=== PATIENT | female | born 1935 | race Caucasian/White ===

== ENCOUNTER 2016-06-10 09:08 | Inpatient (IN) | payer MEDICARE ==
[~2016-06-10 09:08] MED LIST: AMLODIPINE-BEN1 EAC7 PO; ARICEPT10 M2 PO; ARTHRITIS PAIN650 M6 PO; BISAC-EVAC10 MG PR; BISCOLAX10 MG PR; COLACE100 M1 PO; DOCUSATE SODIU100 M3 PO; GABAPENTIN300 M1 PO; HYDROCODON-ACE1 EA16 PO; KEFLEX500 M4 PO; LASIX40 M1 PO; LOPERAMIDE2 M2 PO; LOTREL 5-10 MG1 EACH PO; MAPAP ARTHRITI650 M1 PO; MILK OF MAGNESIA PO; MULTIVITAMINS1 EAC6 PO; NAMENDA5 M1 PO; NEURONTIN300 M1 PO; NORCO 5-325 TA1 EACH PO; NUEDEXTA 20-101 EAC1 PO; ONCE DAILY1 EACH PO; POTASSIUM CHLO20 ME3 PO; QUETIAPINE FUMA25 M1 PO; RISPERIDONE0.5 M1 PO; SERTRALINE HCL50 M4 PO; VANCOMYCIN125 MG/2.1 PO; ZOLOFT50 M1 PO
[2016-06-10] MEDS ORDERED: AMLODIPINE-BEN1 EAC7 PO (09:18)
[2016-06-10] MEDS ORDERED: MAPAP ARTHRITI650 M1 PO ×2 (09:19→09:23)
[2016-06-10] MEDS ORDERED: NUEDEXTA 20-101 EAC1 PO (09:19)
[2016-06-10] MEDS ORDERED: NEURONTIN300 M1 PO (09:19)
[2016-06-10] MEDS ORDERED: ZOLOFT50 M1 PO (09:20)
[2016-06-10] MEDS ORDERED: ONCE DAILY1 EACH PO (09:20)
[2016-06-10] MEDS ORDERED: RISPERDAL0.5 M2 PO (09:20)
[2016-06-10] MEDS ORDERED: BISCOLAX10 MG PR (09:21)
[2016-06-10] MEDS ORDERED: COLACE100 M1 PO (09:21)
[2016-06-10] MEDS ORDERED: TRIMETHOPRIM100 M1 PO (09:21)
[2016-06-10] MEDS ORDERED: HYDROCODON-ACE1 EA16 PO (09:22)
[2016-06-10] MEDS ORDERED: LOPERAMIDE2 M2 PO (09:22)
[2016-06-10] MEDS ORDERED: MILK OF MAGNESIA PO (09:23)
[2016-06-10 09:56] LABS: URINE BILIRUBIN NEGATIVE (NEG); URINE BLOOD MODERATE (NEG); URINE GLUCOSE (UA) NEGATIVE (NEG); URINE KETONE NEGATIVE (NEG); URINE LEUKOCYTE ESTERASE POSITIVE (NEG); URINE NITRITE NEGATIVE (NEG); URINE PROTEIN SMALL (NEG); URINE SPECIFIC GRAVITY 1.015 (1.003-1.030)
[2016-06-10 09:57] LABS: URINE APPEARANCE HAZY; URINE COLOR YELLOW
[2016-06-10 10:05] LABS: BASO % 0.4 % (0-2); EOS % 1.7 % (0-7); EOSINOPHIL ABSOLUTE COUNT 0.1 tho/cmm (0.0-0.7); HCT-HEMATOCRIT 36.3 % (34.0-49.0); HGB-HEMOGLOBIN 11.4 gm/dl (12.0-15.5); IMMATURE GRANULOCYTES ABSOLUTE 0.01 tho/cmm (0-0.03); IMMATURE GRANULOCYTES PERCENT 0.2 % (0-0.3); LYMPH % 30.8 % (20-45); LYMPH ABSOLUTE COUNT 1.6 tho/cmm (0.8-4.5); MCH (MEAN CORPUSCULAR HGB) 27.1 pg (28.0-32.0); MCHC MEAN CORPUSCULAR HGB CONC 31.4 % (32.0-36.0); MCV (MEAN CELL VOLUME) 86.2 fl (82.0-96.0); MEAN PLATELET VOLUME 10.1 cmc (9.4-12.4); MONO % 5.6 % (0-12); MONOCYTE ABSOLUTE COUNT 0.3 tho/cmm (0.0-1.2); NEUTROPHIL ABSOLUTE COUNT 3.3 tho/cmm (1.6-8.0); NEUTROPHIL-AUTOMATED 3.3 tho/cmm (1.6-8.0); NEUTROPHILS % 61.3 % (40-80); PLATELET COUNT 169 tho/cmm (150-450); RED BLOOD COUNT 4.21 mil/cmm (4.00-5.20); RED CELL DISTRIBUTION WIDTH 15.6 % (12.4-16.4); WHITE BLOOD COUNT 5.3 tho/cmm (4.0-10.0)
[2016-06-10 10:13] LABS: URINE BACTERIA 4+
[2016-06-10 10:35] LABS: ALB/GLOB RATIO 0.9 (0.8-2.0); ALBUMIN 3.1 g/dl (3.5-5.0); ALKALINE PHOSPHATASE 58 U/L (33-138); ALT/SGPT 17 U/L (12-78); ANION GAP 13 mmol/L (0-20); AST/SGOT 16 U/L (10-40); BILIRUBIN,TOTAL 0.2 mg/dl (0-1.5); BLOOD UREA NITROGEN 23 mg/dl (6-24); CALCIUM 8.6 mg/dl (8.5-10.5); CARBON DIOXIDE-VENOUS 23 mmol/L (22-32); CHLORIDE 111 mmol/l (96-110); CREATININE 1.16 mg/dl (0.50-1.10); GLUCOSE 111 mg/dL (70-110); LIPASE 93 U/L (73-393); POTASSIUM 4.3 mmol/L (3.7-5.1); SODIUM 143 mmol/L (135-145); eGFR VALUE FOR BLACK 51 mL/Min
[2016-06-10 10:43] LABS: PROCALCITONIN <0.05 ng/ml (0.05-0.09)
[2016-06-11 06:29] LABS: BASO % 0.3 % (0-2); EOSINOPHIL ABSOLUTE COUNT 0.1 tho/cmm (0.0-0.7); HCT-HEMATOCRIT 36.4 % (34.0-49.0); HGB-HEMOGLOBIN 11.4 gm/dl (12.0-15.5); IMMATURE GRANULOCYTES ABSOLUTE 0.01 tho/cmm (0-0.03); IMMATURE GRANULOCYTES PERCENT 0.1 % (0-0.3); LYMPH % 18.8 % (20-45); LYMPH ABSOLUTE COUNT 1.4 tho/cmm (0.8-4.5); MCH (MEAN CORPUSCULAR HGB) 27.1 pg (28.0-32.0); MCHC MEAN CORPUSCULAR HGB CONC 31.3 % (32.0-36.0); MCV (MEAN CELL VOLUME) 86.7 fl (82.0-96.0); MEAN PLATELET VOLUME 9.7 cmc (9.4-12.4); MONO % 7.6 % (0-12); MONOCYTE ABSOLUTE COUNT 0.6 tho/cmm (0.0-1.2); NEUTROPHIL ABSOLUTE COUNT 5.2 tho/cmm (1.6-8.0); NEUTROPHIL-AUTOMATED 5.2 tho/cmm (1.6-8.0); NEUTROPHILS % 72.2 % (40-80); PLATELET COUNT 202 tho/cmm (150-450); RED CELL DISTRIBUTION WIDTH 15.7 % (12.4-16.4); WHITE BLOOD COUNT 7.2 tho/cmm (4.0-10.0)
[2016-06-11 06:48] LABS: ANION GAP 12 mmol/L (0-20); BLOOD UREA NITROGEN 18 mg/dl (6-24); CALCIUM 8.6 mg/dl (8.5-10.5); CARBON DIOXIDE-VENOUS 24 mmol/L (22-32); CHLORIDE 111 mmol/l (96-110); CREATININE 1.11 mg/dl (0.50-1.10); GLUCOSE 91 mg/dL (70-110); SODIUM 143 mmol/L (135-145); eGFR VALUE FOR BLACK 54 mL/Min
[2016-06-12 06:12] LABS: ANION GAP 11 mmol/L (0-20); BLOOD UREA NITROGEN 17 mg/dl (6-24); CALCIUM 8.6 mg/dl (8.5-10.5); CARBON DIOXIDE-VENOUS 26 mmol/L (22-32); CHLORIDE 111 mmol/l (96-110); GLUCOSE 89 mg/dL (70-110); POTASSIUM 3.8 mmol/L (3.7-5.1); SODIUM 144 mmol/L (135-145); eGFR VALUE FOR BLACK 54 mL/Min
[2016-06-13] MEDS ORDERED: STOP TAKING (13:17)
[2016-06-13] MEDS ORDERED: KEFLEX500 M4 PO (13:17)
[2016-06-13] MEDS ORDERED: SEROQUEL25 M2 PO ×2 (13:23)
[2016-06-13] MEDS ORDERED: CULTURELLE1 EAC1 PO (13:27)
== END 2016-06-13 15:00 | DRG 682 ==
LOC: EDMED 09:08 → EMR2 12:51 → PCUB 15:38 → 5WE 06-12 16:31
PROVIDERS: Emergency Medicine; Internal Medicine; ADMIT Internal Medicine
DX: N17.9 Acute kidney failure, unspecified (principal); G93.40 Encephalopathy, unspecified; I95.9 Hypotension, unspecified; N39.0 Urinary tract infection, site not specified; I10 Essential (primary) hypertension; F03.90 Unspecified dementia, unspecified severity, without behavioral disturbance, psychotic disturbance, mood disturbance, and anxiety; F32.9 Major depressive disorder, single episode, unspecified; B95.2 Enterococcus as the cause of diseases classified elsewhere; Z66 Do not resuscitate; Z87.440 Personal history of urinary (tract) infections; Z79.891 Long term (current) use of opiate analgesic; Z79.899 Other long term (current) drug therapy
CPT/HCPCS: G8987-GO-CN; G8988-GO-CL; J1630; J1650; J2543; J7030; J7050; P9612

== ENCOUNTER 2016-06-22 10:56 | Inpatient (IN) | payer MEDICARE ==
[~2016-06-22 10:56] MED LIST changes: +CULTURELLE1 EAC1 PO; +RISPERDAL0.5 M2 PO; +SEROQUEL25 M2 PO; +STOP TAKING; +TRIMETHOPRIM100 M1 PO
[2016-06-22] MEDS ORDERED: AMLODIPINE-BEN1 EAC7 PO (11:07)
[2016-06-22] MEDS ORDERED: NEURONTIN300 M1 PO (11:08)
[2016-06-22] MEDS ORDERED: NUEDEXTA 20-101 EAC1 PO (11:08)
[2016-06-22] MEDS ORDERED: MAPAP ARTHRITI650 M1 PO ×2 (11:08→11:16)
[2016-06-22] MEDS ORDERED: ONCE DAILY1 EACH PO (11:09)
[2016-06-22] MEDS ORDERED: SEROQUEL25 M2 PO ×2 (11:10→11:17)
[2016-06-22] MEDS ORDERED: RISPERDAL0.5 M2 PO (11:10)
[2016-06-22 11:11] LABS: ABG CO2 ARTERIAL 25 mmol/L (21-27); ARTERIAL BLD GAS O2 SATURATION 96 % (95-98); ARTERIAL BLOOD GAS PCO2 44 mmHg (32-45); ARTERIAL PO2 86 mmHg (70-100); BICARBONATE 23 mmol/L (21-28); BLOOD GAS BASE EXCESS -2 mM/L (-/+3); PH 7.34 Units (7.35-7.45)
[2016-06-22] MEDS ORDERED: SERTRALINE HCL50 M4 PO (11:13)
[2016-06-22] MEDS ORDERED: TRIMETHOPRIM100 M1 PO (11:13)
[2016-06-22] MEDS ORDERED: BISCOLAX10 MG PR (11:14)
[2016-06-22] MEDS ORDERED: DOCUSATE SODIU100 M3 PO (11:14)
[2016-06-22] MEDS ORDERED: HYDROCODON-ACE1 EA16 PO (11:15)
[2016-06-22] MEDS ORDERED: MILK OF MAGNESIA PO (11:16)
[2016-06-22] MEDS ORDERED: LOPERAMIDE2 M2 PO (11:16)
[2016-06-22 12:11] LABS: BASO % 0.2 % (0-2); EOS % 0.8 % (0-7); EOSINOPHIL ABSOLUTE COUNT 0.1 tho/cmm (0.0-0.7); HCT-HEMATOCRIT 38.5 % (34.0-49.0); HGB-HEMOGLOBIN 12.1 gm/dl (12.0-15.5); IMMATURE GRANULOCYTES ABSOLUTE 0.02 tho/cmm (0-0.03); IMMATURE GRANULOCYTES PERCENT 0.2 % (0-0.3); LYMPH % 15.5 % (20-45); LYMPH ABSOLUTE COUNT 1.4 tho/cmm (0.8-4.5); MCH (MEAN CORPUSCULAR HGB) 27.4 pg (28.0-32.0); MCHC MEAN CORPUSCULAR HGB CONC 31.4 % (32.0-36.0); MCV (MEAN CELL VOLUME) 87.1 fl (82.0-96.0); MEAN PLATELET VOLUME 9.9 cmc (9.4-12.4); MONO % 5.2 % (0-12); MONOCYTE ABSOLUTE COUNT 0.5 tho/cmm (0.0-1.2); NEUTROPHIL ABSOLUTE COUNT 6.9 tho/cmm (1.6-8.0); NEUTROPHIL-AUTOMATED 6.9 tho/cmm (1.6-8.0); NEUTROPHILS % 78.1 % (40-80); PLATELET COUNT 200 tho/cmm (150-450); RED BLOOD COUNT 4.42 mil/cmm (4.00-5.20); RED CELL DISTRIBUTION WIDTH 15.9 % (12.4-16.4); WHITE BLOOD COUNT 8.8 tho/cmm (4.0-10.0)
[2016-06-22 12:24] LABS: URINE BILIRUBIN NEGATIVE (NEG); URINE BLOOD MODERATE (NEG); URINE GLUCOSE (UA) NEGATIVE (NEG); URINE KETONE NEGATIVE (NEG); URINE LEUKOCYTE ESTERASE POSITIVE (NEG); URINE NITRITE NEGATIVE (NEG); URINE PH 6.5 (5.0-8.0); URINE PROTEIN MODERATE (NEG); URINE SPECIFIC GRAVITY 1.015 (1.003-1.030)
[2016-06-22 12:26] LABS: URINE APPEARANCE HAZY; URINE COLOR YELLOW
[2016-06-22 12:26] LABS: ALB/GLOB RATIO 0.7 (0.8-2.0); ALBUMIN 2.8 g/dl (3.5-5.0); ALKALINE PHOSPHATASE 52 U/L (33-138); ANION GAP 13 mmol/L (0-20); AST/SGOT 18 U/L (10-40); BILIRUBIN,TOTAL 0.2 mg/dl (0-1.5); BLOOD UREA NITROGEN 24 mg/dl (6-24); CALCIUM 8.2 mg/dl (8.5-10.5); CARBON DIOXIDE-VENOUS 25 mmol/L (22-32); CHLORIDE 110 mmol/l (96-110); CREATININE 1.22 mg/dl (0.50-1.10); GLUCOSE 104 mg/dL (70-110); POTASSIUM 4.6 mmol/L (3.7-5.1); SODIUM 143 mmol/L (135-145); eGFR VALUE FOR BLACK 48 mL/Min
[2016-06-22 12:28] LABS: ALT/SGPT <10 U/L (12-78)
[2016-06-22 12:38] LABS: URINE WBC 40-50 /[HPF] (0-5)
[2016-06-22 12:39] LABS: URINE BACTERIA 2+; URINE EPITHELIAL CELLS RARE /[HPF] (0-10)
[2016-06-22 13:11] LABS: PROCALCITONIN <0.05 ng/ml (0.05-0.09)
[2016-06-22 20:13] LABS: HCT-HEMATOCRIT 36.2 % (34.0-49.0); HGB-HEMOGLOBIN 11.4 gm/dl (12.0-15.5); MCV (MEAN CELL VOLUME) 86.4 fl (82.0-96.0)
[2016-06-23 03:19] LABS: BASO % 0.1 % (0-2); EOS % 2.2 % (0-7); EOSINOPHIL ABSOLUTE COUNT 0.2 tho/cmm (0.0-0.7); HCT-HEMATOCRIT 34.4 % (34.0-49.0); HGB-HEMOGLOBIN 10.9 gm/dl (12.0-15.5); IMMATURE GRANULOCYTES ABSOLUTE 0.01 tho/cmm (0-0.03); IMMATURE GRANULOCYTES PERCENT 0.1 % (0-0.3); LYMPH % 19.6 % (20-45); LYMPH ABSOLUTE COUNT 1.3 tho/cmm (0.8-4.5); MCHC MEAN CORPUSCULAR HGB CONC 31.7 % (32.0-36.0); MCV (MEAN CELL VOLUME) 85.4 fl (82.0-96.0); MEAN PLATELET VOLUME 9.3 cmc (9.4-12.4); MONO % 5.4 % (0-12); MONOCYTE ABSOLUTE COUNT 0.4 tho/cmm (0.0-1.2); NEUTROPHIL ABSOLUTE COUNT 4.9 tho/cmm (1.6-8.0); NEUTROPHIL-AUTOMATED 4.9 tho/cmm (1.6-8.0); NEUTROPHILS % 72.6 % (40-80); PLATELET COUNT 218 tho/cmm (150-450); RED BLOOD COUNT 4.03 mil/cmm (4.00-5.20); RED CELL DISTRIBUTION WIDTH 15.9 % (12.4-16.4); WHITE BLOOD COUNT 6.8 tho/cmm (4.0-10.0)
[2016-06-23 03:32] LABS: ANION GAP 10 mmol/L (0-20); BLOOD UREA NITROGEN 16 mg/dl (6-24); CALCIUM 8.3 mg/dl (8.5-10.5); CARBON DIOXIDE-VENOUS 25 mmol/L (22-32); CHLORIDE 111 mmol/l (96-110); CREATININE 0.95 mg/dl (0.50-1.10); GLUCOSE 91 mg/dL (70-110); POTASSIUM 4.1 mmol/L (3.7-5.1); SODIUM 142 mmol/L (135-145); eGFR VALUE FOR BLACK 65 mL/Min
[2016-06-23 11:39] LABS: HCT-HEMATOCRIT 39.8 % (34.0-49.0); HGB-HEMOGLOBIN 12.6 gm/dl (12.0-15.5); MCV (MEAN CELL VOLUME) 85.4 fl (82.0-96.0); RED CELL DISTRIBUTION WIDTH 15.9 % (12.4-16.4)
--- NOTE | 2016-06-23 14:54 | NUR ---
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 CONTINUED WITH CHART REVIEW.
[2016-06-24 06:32] LABS: ANION GAP 11 mmol/L (0-20); BLOOD UREA NITROGEN 9 mg/dl (6-24); CARBON DIOXIDE-VENOUS 26 mmol/L (22-32); CHLORIDE 109 mmol/l (96-110); CREATININE 0.78 mg/dl (0.50-1.10); GLUCOSE 104 mg/dL (70-110); POTASSIUM 3.6 mmol/L (3.7-5.1); SODIUM 142 mmol/L (135-145); eGFR VALUE FOR BLACK 82 mL/Min
== END 2016-06-24 14:30 | DRG 689 ==
LOC: EDMED 10:56 → EMR2 15:50 → 5WD 17:15
PROVIDERS: Emergency Medicine; ADMIT Hospitalist
DX: N39.0 Urinary tract infection, site not specified (principal); G93.40 Encephalopathy, unspecified; I95.9 Hypotension, unspecified; G30.9 Alzheimer's disease, unspecified; K92.1 Melena; F02.80 Dementia in other diseases classified elsewhere, unspecified severity, without behavioral disturbance, psychotic disturbance, mood disturbance, and anxiety; I10 Essential (primary) hypertension; F32.9 Major depressive disorder, single episode, unspecified; Z66 Do not resuscitate; Z79.899 Other long term (current) drug therapy
CPT/HCPCS: C9113; J2543; J7030